=== PATIENT | female | born 1995 | race Two or more races ===

== ENCOUNTER 2017-07-17 22:23 | Observation (INO) | payer SELFPAY ==
[2017-07-17] MEDS ORDERED: IV RINGERS,LACTATED 1000ML 1,000 ML IV (22:30)
[2017-07-17 22:54] LABS: BILIRUBIN,URINE NEGATIVE (NEG); CLARITY,URINE CLEAR; COLOR,URINE YELLOW; GLUCOSE,URINE NEGATIVE (NEG); NITRITE,URINE NEGATIVE (NEG); PH,URINE 6.5; PROTEIN,URINE NEGATIVE (NEG-TRACE)
[2017-07-17 23:01] LABS: BACTERIA,URINE MANY /HPF (0-FEW); BARBITURATES NEG (NEG); BENZODIAZEPINES NEG (NEG); CANNABINOIDS NEG (NEG); COCAINE NEG (NEG); METHADONE NEG (NEG); OPIATES NEG (NEG); PHENCYCLIDINE NEG (NEG); RBC,URINE 0 /HPF (0-2); SQUAMOUS EPITHELIAL CELL,UR MANY /LPF
[2017-07-17 23:18] LABS: AMPHETAMINE/METHAMPHETAMINE NEG (NEG); ETHANOL, URINE NEG (NEG)
[2017-07-17] MEDS: IV RINGERS,LACTATED 1000ML 1,000 ML IV (23:28)
[2017-07-17] MEDS: CLINDAMYCIN 600MG PREMIX 50 ML IV (23:28)
[2017-07-17] MEDS: OSELTAMIVIR 75 MG CAPSULE PO (23:29)
[2017-07-17] MEDS: guaiFENesin ORAL 200 MG/10 ML LIQUID. PO (23:29)
[2017-07-17] MEDS: ACETAMINOPHEN 500 MG TABLET PO (23:29)
[2017-07-17] MEDS: diphenhydrAMINE HCL 25 MG CAPSULE PO (23:37)
[2017-07-17 23:58] LABS: INFLUENZA A PATIENT POSITIVE (NEGATIVE); INFLUENZA B PATIENT NEGATIVE (NEGATIVE); OBC FLU VALID
[2017-07-18] MEDS: IV RINGERS,LACTATED 1000ML 1,000 ML IV ×2 (01:11→05:41)
[2017-07-18] MEDS: ACETAMINOPHEN 500 MG TABLET PO ×2 (05:10→10:54)
[2017-07-18] MEDS: diphenhydrAMINE HCL 25 MG CAPSULE PO (05:10)
[2017-07-18] MEDS: CLINDAMYCIN 600MG PREMIX 50 ML IV (08:25)
[2017-07-18] MEDS: OSELTAMIVIR 75 MG CAPSULE PO (08:25)
== END 2017-07-18 15:15 | disposition home or self-care (01) ==
LOC: 3 SO LND 22:23
DX: O26.893 Other specified pregnancy related conditions, third trimester (principal); R50.9 Fever, unspecified; M79.1 Myalgia; Z3A.35 35 weeks gestation of pregnancy
CPT/HCPCS: 80307; 81001; 87086; 87804; 87804-59; 96361; 96365; 96375; G0378; G0379; J3490; J7120; Q0163

== ENCOUNTER 2017-08-29 09:34 | Inpatient (IN) | payer SELFPAY ==
[2017-08-29] MEDS ORDERED: ATROPINE 0.5 MG/5 ML DISP.SYRIN. IV ×2 (10:00→10:45)
[2017-08-29] MEDS ORDERED: NALOXONE 0.4 MG/ML VIAL. IV ×2 (10:00→10:45)
[2017-08-29 10:20] LABS: HEMATOCRIT 37.8 % (36.0-47.0); HEMOGLOBIN 12.6 g/dL (12.0-15.5); MEAN CORPUSCULAR HEMOGLOBIN 30 pg (25-35); MEAN CORPUSCULAR HGB CONC 33 g/dL (31-37); MEAN CORPUSCULAR VOLUME 91 fL (79-100); PLATELET COUNT 156 x10^3/uL (140-400); RED BLOOD COUNT 4.17 x10^6/uL (3.50-5.40); WHITE BLOOD COUNT 7.6 x10^3/uL (4.0-11.0)
[2017-08-29] MEDS ORDERED: OXYTOCIN 10 UNIT/ML VIAL. ×2 (10:34→11:33)
[2017-08-29] MEDS ORDERED: FAMOTIDINE 20 MG/2 ML VIAL (10:34)
[2017-08-29] MEDS ORDERED: ONDANSETRON PF 4 MG/2 ML VIAL. (10:34)
[2017-08-29] MEDS ORDERED: METOCLOPRAMIDE HCL 10 MG/2 ML VIAL. (10:34)
[2017-08-29] MEDS ORDERED: ePHEDrine PF IN SALINE 50 MG/5 ML DISP.SYRIN IV (10:35)
[2017-08-29] MEDS ORDERED: PHENYLEPHRINE in 0.9% NACL PF 1 MG/10 ML SYRINGE. IV (10:35)
[2017-08-29] MEDS ORDERED: fentaNYL PF VIAL 100 MCG/2 ML VIAL (10:41)
[2017-08-29] MEDS ORDERED: MORPHINE PF 5 MG/10 ML VIAL. (10:41)
[2017-08-29] MEDS: CITRIC ACID/SODIUM CITRATE 30 ML SOLUTION. PO (10:45)
[2017-08-29] MEDS: IV RINGERS,LACTATED 1000ML 1,000 ML IV ×2 (13:39→15:30)
[2017-08-29] MEDS: KETOROLAC 30 MG/ML INJ. IV (13:39)
[2017-08-29] MEDS ORDERED: ONDANSETRON PF 4 MG/2 ML VIAL. IV (21:00)
[2017-08-29] MEDS: diphenhydrAMINE 50 MG/ML VIAL IVP (21:09)
[2017-08-29] MEDS: MORPHINE SULFATE 4 MG/ML DISP.SYRIN. IV (21:10)
[2017-08-29 23:13] LABS: RPR Non Reactive (Non Reactive)
[2017-08-30 01:12] LABS: HEP B SURFACE ABDY Non Reactive (.)
[2017-08-30 01:12] LABS: HIV ANTIBODY Non Reactive (Non Reactive); RUBELLA IGG ANTIBODY 1.83 index (Immune >0.99)
[2017-08-30] MEDS: IV RINGERS,LACTATED 1000ML 1,000 ML IV (01:50)
[2017-08-30] MEDS: MORPHINE SULFATE 4 MG/ML DISP.SYRIN. IV (05:03)
[2017-08-30] MEDS: diphenhydrAMINE 50 MG/ML VIAL IVP (05:09)
[2017-08-30] MEDS: oxyCODONE/APAP 5/325 1 TAB TABLET PO ×3 (09:02→18:27)
[2017-08-30] MEDS: SIMETHICONE 80 MG TAB.CHEW PO ×2 (09:15→21:16)
[2017-08-30] MEDS: IBUPROFEN 800 MG TABLET. PO ×2 (10:44→19:53)
[2017-08-30] MEDS: MAGNESIUM HYDROXIDE 2,400 MG/30 ML ORAL.SUSP. PO (19:53)
[2017-08-30] MEDS: DOCUSATE SODIUM 100 MG CAPSULE. PO (19:53)
[2017-08-31] MEDS: oxyCODONE/APAP 5/325 1 TAB TABLET PO ×3 (00:24→09:32)
[2017-08-31] MEDS: SIMETHICONE 80 MG TAB.CHEW PO (04:30)
[2017-08-31] MEDS: IBUPROFEN 800 MG TABLET. PO (04:30)
== END 2017-08-31 10:45 | disposition home or self-care (01) | DRG 766 ==
LOC: 3 SO LND 09:34 → 3 NORTH 15:00
PROC: 0DNU0ZZ Release Omentum, Open Approach (ICD-10-PCS; 2017-08-29)
PROC: 10D00Z1 Extraction of Products of Conception, Low, Open Approach (ICD-10-PCS; principal; 2017-08-30)
DX: O34.211 Maternal care for low transverse scar from previous cesarean delivery (principal); Z37.0 Single live birth; Z3A.00 Weeks of gestation of pregnancy not specified
CPT/HCPCS: 36415; 85027; 86593; 86703; 86706; 86762; 86850; 86870; 86900; 86901; J0690; J1200; J1885; J2270; J2370; J2405; J2590; J2765; J3010; J7120; S0028